=== PATIENT | male | born 1950 ===

== ENCOUNTER 2020-04-16 14:31 | Outpatient (REF) | payer MEDICARE, SELFPAY ==
[2020-04-19 16:12] LABS: SARS-CoV-2 RNA Undetected (Undetected); SARS-CoV-2 Specimen Source Nasal
== END 2020-04-16 14:51 ==
LOC: NCHCN 14:31
PROVIDERS: PCP Nurse Practitioner Family; Visit Provider Nurse Practitioner Family
DX: Z20.828 Contact with and (suspected) exposure to other viral communicable diseases (principal)
CPT/HCPCS: U0003